=== PATIENT | female | born 2000 | race African-American/Black ===

== ENCOUNTER 2022-08-09 15:31 | Emergency (ER) | payer MEDICAID, SELFPAY ==
[2022-08-09 15:33] VITALS: BP 150/85; PULSE 60; RESP 18; TEMP 36.6; O2SAT 100; BMI 36.0
== END 2022-08-09 16:28 | disposition left against medical advice (07) ==
LOC: ED 16:34
DX: Z53.21 Procedure and treatment not carried out due to patient leaving prior to being seen by health care provider (principal)